=== PATIENT | female | born 1930 | race Caucasian/White ===

== ENCOUNTER 2018-06-21 11:42 | Emergency (ER) | payer MEDICARE, BC ==
[2018-06-21] MEDS ORDERED: Sodium Chloride 0.9% 10 ML Syringe FLUSH PRN (11:48)
[2018-06-21] MEDS ORDERED: cefOXitin 2 GM in Sodium Chloride 0.9% 50 ML IV ONE (12:01)
[2018-06-21] MEDS ORDERED: fentaNYL 100 MCG/2 ML SDV IVPUSH ONE ×2 (12:08)
[2018-06-21] MEDS ORDERED: fentaNYL 100 MCG/2 ML SDV ONE (12:09)
--- NOTE | 2018-06-21 12:09 | EDM.PDOC ---
ED HPI GENERAL MEDICAL PROBLEM - General Chief Complaint: Neuro Symptoms/Deficits Stated Complaint: MEDICAL VIA NORTH Time Seen by Provider: 06/21/18 12:31 Source of Information: Reports: Patient, EMS, Family, RN Notes Reviewed History Limitations: Reports: Altered Mental Status - History of Present Illness INITIAL COMMENTS - FREE TEXT/NARRATIVE: Ambika presents per EMS with change in mental status since last night, difficulty with clear speech and answering questions, SOB, urinary incontinence and generalized body aches. GCS 14 Last known normal was last night prior to bed, talking on the telephone. Patient lives with her brother who helps to care for her. June 16, 2018 patient fell after her knees gave out. Family states she did not hit her head or have any other injuries. Patient did not go in for any medical care. She started to have increased chronic knee pain. June patient started taking PRN prednisone for chronic pain. She has a bath aide come once a week - last this past Oc2017 but patient sleeping more then usual. Ambika has a history of chronic atrial fibrillation for which she does not want to take anticoagulants. Patient has DNR, DNI paperwork to chart, stating she would like IV fluids/ antibiotics if needed. Normal baseline is alert, oriented with slow mobility due to chronic pain/ arthritis. - Related Data Allergies Allergy/AdvReac Type Severity Reaction Status Date / Time codeine Allergy Vomiting Verified 06/21/18 12:32 Home Meds: Home Meds Terazosin [Hytrin] 5 mg PO DAILY 05/05/14 [History] traMADol [Ultram] 50 mg PO DAILY 05/05/14 [History] Aspirin 81 mg PO DAILY 04/09/16 [History] Cefdinir [Omnicef] 300 mg PO BID #8 cap 04/13/16 [Rx] Prednisone [IMW: predniSONE] 40 mg PO DAILY #6 tab 04/13/16 [Rx] Past Medical History HEENT History: Reports: Impaired Vision EMPLOYMENT OFFICER History: Reports: Musculoskeletal History: Reports: Fibromyalgia - Infectious Disease History Infectious Disease History: Reports: Chicken Pox, Measles, Mumps - Past Surgical History GI Surgical History: Reports: Cholecystectomy, Small Bowel ED ROS GENERAL - Review of Systems Review Of Systems: See Below Constitutional: Reports: Weakness, Fatigue, Other (Muscle aches/body aches) HEENT: Reports: Eye Discharge, Hearing Loss. Denies: Ear Pain, Eye Pain, Throat Pain Respiratory: Reports: Shortness of Breath, Wheezing. Denies: Cough, Sputum, Hemoptysis Cardiovascular: Reports: Dyspnea on Exertion, Edema. Denies: Chest Pain, Palpitations Endocrine: Reports: Fatigue GI/Abdominal: Reports: Stool Incontinence : Reports: Incontinence Musculoskeletal: Reports: Joint Pain, Muscle Pain Skin: Reports: Wound, Other (Pressure ulcer to bilateral buttocks, patient family using neosporin to ulcers. ) Neurological: Reports: Confusion, Trouble Speaking, Weakness, Change in Speech. 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 She had sudden onset of change in mental status today compared to last night. She had a fall 5 days ago without reported injury per her daughters. She has increased bladder/bowel incontinence, pressure ulcers to bilateral buttocks, chronic pain due to polymyalgia, arthritis, bursitis. Exam Limited By: Altered Mental Status General Appearance: Anxious, Moderate Distress, Obese, Other (incontinent of urine, feces, pressure wounds to buttocks. ) Eye Exam: Bilateral Eye: Normal Inspection Ears: Normal External Exam, Normal Canal, Normal TMs, Hearing Loss Nose: Normal Mucosa, Nasal Deformity Throat/Mouth: Normal Gums, Normal Oropharynx, No Airway Compromise, Other (dry mucus membranes, no exudate, ulcers noted. ) Head Exam: Atraumatic, Normocephalic. No: Facial Swelling, Facial Tenderness, Sinus Tenderness Neck: Normal Inspection, Supple, Non-Tender, Full Range of Motion. No: Lymphadenopathy (R), Lymphadenopathy (L) Respiratory/Chest: Chest Non-Tender, Decreased Breath Sounds, Rales, Wheezing, Accessory Muscle Use Cardiovascular: Normal Peripheral Pulses, Other (Irregular heart rate, chronic history of atial fibrillation without use of anticoagulation. Patient denies chest pain. Noted murmur. 2+ bilateral lower extremities. ) GI/Abdominal: Normal Bowel Sounds, Soft, No Distention, Other. No: Guarding, Rigid, Rebound Rectal (Female) Exam: Other (incontinent) Neurological: Difficulty Walking, Other (Generalized weakness, equal strength to all four extremities. Speech not slurred, however patient has a difficult time finding words to express herself. ). No: Alert, Normal Gait, Oriented x 3 Back Exam: No: CVA Tenderness (R), CVA Tenderness (L) Extremities: Increased Warmth, Other (Significant pain to bilateral knees, warmth. ) Psychiatric: Anxious, Tearful Skin Exam: Increased Warmth, Pallor, Other (pressure ulcer to right buttock 3x5cm, eschar/necrotic tissue overlay noted with underlying fluctuance. Surrounding tissues has decrased blanching. Pressure ulcer starting to left buttock, 1x2cm, no fluctuance to underlying tissue, decreased blanching of surrounding tissue. ) EKG INTERPRETATION EKG Date: 06/21/18 Time: 12:56 Rhythm: A-Fib Rate (Beats/Min): 78 P-Wave: Absent QRS: Normal ST-T: Normal Course - Vital Signs Last Recorded V/S: Last Vital Signs Temp 36.9 C 06/21/18 11:42 Pulse 92 06/21/18 11:42 Resp 16 06/21/18 11:42 BP 141/94 H 06/21/18 11:42 Pulse Ox 92 L 06/21/18 11:42 - Orders/Labs/Meds Orders: Active Orders 24 hr Category Date Time Status EKG Documentation Completion [RC] ASDIRECTED Care 06/21/18 11:48 Active Ledesma Catheter Insertion [Insert Urinary Catheter] [OM. Care 06/21/18 12:00 Ordered PC] Q24H Urinary Catheter Assessment [RC] ASDIRECTED Care 06/21/18 11:47 Active Vital Signs [RC] Q1H Care 06/21/18 11:45 Active Chest wo Cont [CT] Stat Exams 06/21/18 11:48 Taken Head wo Cont [CT] Stat Exams 06/21/18 11:48 Taken CULTURE BLOOD [BC] Urgent Lab 06/21/18 12:15 Received CULTURE BLOOD [BC] Urgent Lab 06/21/18 12:20 Received CULTURE URINE [RM] Stat Lab 06/21/18 12:54 Received Sodium Chloride 0.9% [Normal Saline] 1,000 ml Med 06/21/18 12:15 Active IV ASDIRECTED Sodium Chloride 0.9% [Saline Flush] Med 06/21/18 11:48 Active 10 ml FLUSH ASDIRECTED PRN Blood Culture x2 Reflex Set [OM.PC] Urgent Oth 06/21/18 11:45 Ordered Saline Lock Insert [OM.PC] Routine Oth 06/21/18 11:48 Ordered EKG 12 Lead [EK] Routine Ther 06/21/18 11:48 Ordered Medication Orders Sodium Chloride (Normal Saline) 1,000 mls @ 1,000 mls/hr IV ASDIRECTED CARLO Last Admin: 06/21/18 12:26 Dose: 1,000 mls/hr Sodium Chloride (Saline Flush) 10 ml FLUSH ASDIRECTED PRN PRN Reason: Keep Vein Open Last Admin: 06/21/18 12:26 Dose: 10 ml Patient is a DNR/DNI per signed paperwork brought in by family. Labs: Laboratory Tests 06/21/18 06/21/18 06/21/18 Range/Units 11:48 12:20 12:20 WBC 6.3 (4.5-11.0) K/uL RBC 4.51 (3.30-5.50) M/uL Hgb 12.9 (12.0-15.0) g/dL Hct 40.1 (36.0-48.0) % MCV 89 (80-98) fL MCH 29 (27-31) pg MCHC 32 (32-36) % Plt Count 213 (150-400) K/uL Neut % (Auto) 85 H (36-66) % Lymph % (Auto) 10 L (24-44) % [place] % (Auto) 5 (2-6) % Eos % (Auto) 1 L (2-4) % Baso % (Auto) 0 (0-1) % PT (9.5-12.0) sec INR (0.80-1.20) APTT (27.0-36.0) sec Puncture Site ABG pH (7.350-7.450) ABG pCO2 (35.0-42.0) mmHg ABG pO2 (75.0-100.0) mmHg ABG HCO3 (22.0-26.0) mmol/L ABG Total CO2 (21.0-25.0) mmol/L ABG O2 Saturation (95.0-98.0) % ABG O2 Content (15.0-23.0) %vol ABG Base Excess mm/L ABG Hemoglobin (12.0-16.0) g/dL ABG Oxyhemoglobin % ABG Carboxyhemoglobin (0.0-1.6) % ABG Methemoglobin % Marty Test O2 Delivery Device Sodium 143 (140-148) mmol/L Potassium 4.6 (3.6-5.2) mmol/L Chloride 108 (100-108) mmol/L Carbon Dioxide 27 (21-32) mmol/L Anion Gap 7.9 (5.0-14.0) mmol/L BUN 39 H (7-18) mg/dL Creatinine 0.9 (0.6-1.0) mg/dL Est Cr Clr Drug Dosing TNP Estimated GFR (MDRD) 59 L (>60) Glucose 102 (74-106) mg/dL Lactic Acid (0.4-2.0) mmol/L Calcium 8.5 (8.5-10.1) mg/dL Magnesium 1.9 (1.8-2.4) mg/dL Total Bilirubin 0.6 (0.2-1.0) mg/dL AST 24 (15-37) U/L ALT 26 (12-78) U/L Alkaline Phosphatase 78 (46-116) U/L Troponin I (0.000-0.056) ng/mL C-Reactive Protein 6.13 H (0.0-0.3) mg/dL NT-Pro-B Natriuret Pep (5-450) pg/mL Total Protein 7.2 (6.4-8.2) g/dL Albumin 2.4 L (3.4-5.0) g/dL Globulin 4.8 H (2.3-3.5) g/dL Albumin/Globulin Ratio 0.5 L (1.2-2.2) TSH, Ultra Sensitive 0.800 (0.358-3.740) uIU/mL Urine Color Urine Appearance Urine pH (4.5-8.0) Ur Specific [employer] (1.008-1.030) Urine Protein (NEGATIVE) mg/dL Urine Glucose (UA) (NEGATIVE) mg/dL Urine Ketones (NEGATIVE) mg/dL Urine Occult Blood (NEGATIVE) Urine Nitrite (NEGATIVE) Urine Bilirubin (NEGATIVE) Urine Urobilinogen (NORMAL) mg/dL Ur Leukocyte Esterase (NEGATIVE) 06/21/18 06/21/18 06/21/18 Range/Units 12:20 12:20 12:20 WBC (4.5-11.0) K/uL RBC (3.30-5.50) M/uL Hgb (12.0-15.0) g/dL Hct (36.0-48.0) % MCV (80-98) fL MCH (27-31) pg MCHC (32-36) % Plt Count (150-400) K/uL Neut % (Auto) (36-66) % Lymph % (Auto) (24-44) % [place] % (Auto) (2-6) % Eos % (Auto) (2-4) % Baso % (Auto) (0-1) % PT (9.5-12.0) sec INR (0.80-1.20) APTT (27.0-36.0) sec Puncture Site Lt radial ABG pH 7.506 H (7.350-7.450) ABG pCO2 35.4 (35.0-42.0) mmHg ABG pO2 130.0 H (75.0-100.0) mmHg ABG HCO3 27.8 H (22.0-26.0) mmol/L ABG Total CO2 24.3 (21.0-25.0) mmol/L ABG O2 Saturation 99.1 H (95.0-98.0) % ABG O2 Content 17.8 (15.0-23.0) %vol ABG Base Excess 5.0 mm/L ABG Hemoglobin 12.9 (12.0-16.0) g/dL ABG Oxyhemoglobin 96.7 % ABG Carboxyhemoglobin 1.9 H (0.0-1.6) % ABG Methemoglobin 0.5 % Marty Test Pass O2 Delivery Device Room air Sodium (140-148) mmol/L Potassium (3.6-5.2) mmol/L Chloride (100-108) mmol/L Carbon Dioxide (21-32) mmol/L Anion Gap (5.0-14.0) mmol/L BUN (7-18) mg/dL Creatinine (0.6-1.0) mg/dL Est Cr Clr Drug Dosing Estimated GFR (MDRD) (>60) Glucose (74-106) mg/dL Lactic Acid 0.8 (0.4-2.0) mmol/L Calcium (8.5-10.1) mg/dL Magnesium (1.8-2.4) mg/dL Total Bilirubin (0.2-1.0) mg/dL AST (15-37) U/L ALT (12-78) U/L Alkaline Phosphatase (46-116) U/L Troponin I 0.093 H* (0.000-0.056) ng/mL C-Reactive Protein (0.0-0.3) mg/dL NT-Pro-B Natriuret Pep 3955 H (5-450) pg/mL Total Protein (6.4-8.2) g/dL Albumin (3.4-5.0) g/dL Globulin (2.3-3.5) g/dL Albumin/Globulin Ratio (1.2-2.2) TSH, Ultra Sensitive (0.358-3.740) uIU/mL Urine Color Urine Appearance Urine pH (4.5-8.0) Ur Specific [employer] (1.008-1.030) Urine Protein (NEGATIVE) mg/dL Urine Glucose (UA) (NEGATIVE) mg/dL Urine Ketones (NEGATIVE) mg/dL Urine Occult Blood (NEGATIVE) Urine Nitrite (NEGATIVE) Urine Bilirubin (NEGATIVE) Urine Urobilinogen (NORMAL) mg/dL Ur Leukocyte Esterase (NEGATIVE) 06/21/18 06/21/18 Range/Units 13:24 13:50 WBC (4.5-11.0) K/uL RBC (3.30-5.50) M/uL Hgb (12.0-15.0) g/dL Hct (36.0-48.0) % MCV (80-98) fL MCH (27-31) pg MCHC (32-36) % Plt Count (150-400) K/uL Neut % (Auto) (36-66) % Lymph % (Auto) (24-44) % [place] % (Auto) (2-6) % Eos % (Auto) (2-4) % Baso % (Auto) (0-1) % PT 11.5 (9.5-12.0) sec INR 1.05 (0.80-1.20) APTT 26.7 L (27.0-36.0) sec Puncture Site ABG pH (7.350-7.450) ABG pCO2 (35.0-42.0) mmHg ABG pO2 (75.0-100.0) mmHg ABG HCO3 (22.0-26.0) mmol/L ABG Total CO2 (21.0-25.0) mmol/L ABG O2 Saturation (95.0-98.0) % ABG O2 Content (15.0-23.0) %vol ABG Base Excess mm/L ABG Hemoglobin (12.0-16.0) g/dL ABG Oxyhemoglobin % ABG Carboxyhemoglobin (0.0-1.6) % ABG Methemoglobin % Marty Test O2 Delivery Device Sodium (140-148) mmol/L Potassium (3.6-5.2) mmol/L Chloride (100-108) mmol/L Carbon Dioxide (21-32) mmol/L Anion Gap (5.0-14.0) mmol/L BUN (7-18) mg/dL Creatinine (0.6-1.0) mg/dL Est Cr Clr Drug Dosing Estimated GFR (MDRD) (>60) Glucose (74-106) mg/dL Lactic Acid (0.4-2.0) mmol/L Calcium (8.5-10.1) mg/dL Magnesium (1.8-2.4) mg/dL Total Bilirubin (0.2-1.0) mg/dL AST (15-37) U/L ALT (12-78) U/L Alkaline Phosphatase (46-116) U/L Troponin I (0.000-0.056) ng/mL C-Reactive Protein (0.0-0.3) mg/dL NT-Pro-B Natriuret Pep (5-450) pg/mL Total Protein (6.4-8.2) g/dL Albumin (3.4-5.0) g/dL Globulin (2.3-3.5) g/dL Albumin/Globulin Ratio (1.2-2.2) TSH, Ultra Sensitive (0.358-3.740) uIU/mL Urine Color Yellow Urine Appearance Slightly cloudy Urine pH 6.0 (4.5-8.0) Ur Specific [employer] 1.015 (1.008-1.030) Urine Protein Trace (NEGATIVE) mg/dL Urine Glucose (UA) Negative (NEGATIVE) mg/dL Urine Ketones Negative (NEGATIVE) mg/dL Urine Occult Blood Large (NEGATIVE) Urine Nitrite Negative (NEGATIVE) Urine Bilirubin Negative (NEGATIVE) Urine Urobilinogen Normal (NORMAL) mg/dL Ur Leukocyte Esterase Small (NEGATIVE) Upon initial presentation, differentials included CVA/urosepsis due to incontinence/no use of anticoagulation per patient choice for A-fib. CT head negative, CT chest shows bilateral pleural effusions, elevated trop, BNP with change in mental status. Patient lab work reviewed with Dr. Moise, he is in agreement with plan. [facility] contacted, discussed case with Dr. Aviles, hospitalist. She will be admitted for CHF, change in mental status. Ledesma catheter placed, furosemide 40mg IV administered prior to transfer. Meds: Medications Generic Name Dose Route Start Last Admin Trade Name Freq PRN Reason Stop Dose Admin Sodium Chloride 1,000 mls @ 1,000 mls/hr 06/21/18 12:15 06/21/18 12:26 Normal Saline IV 1,000 mls/hr ASDIRECTED CARLO Administration Sodium Chloride 10 ml 06/21/18 11:48 06/21/18 12:26 Saline Flush FLUSH 10 ml ASDIRECTED PRN Administration Keep Vein Open Discontinued Medications Generic Name Dose Route Start Last Admin Trade Name Freq PRN Reason Stop Dose Admin Artificial Tears 0 ml 06/21/18 14:45 Natural Balance Tears EYELF 06/21/18 14:46 ASDIRECTED ONE Fentanyl 50 mcg 06/21/18 12:08 06/21/18 12:24 Sublimaze IVPUSH 06/21/18 12:09 50 mcg ONETIME ONE Administration Fentanyl 50 mcg 06/21/18 12:08 Sublimaze IVPUSH 06/21/18 12:09 ONETIME ONE Fentanyl Confirm 06/21/18 12:09 Sublimaze Administered 06/21/18 12:10 Dose 100 mcg .ROUTE .STK-MED ONE Furosemide 40 mg 06/21/18 14:07 Lasix IVPUSH 06/21/18 14:08 ONETIME ONE Cefoxitin Sodium 2 gm/ Sodium 50 mls @ 100 mls/hr 06/21/18 12:01 06/21/18 12: 26 Chloride IV 06/21/18 12:30 100 mls/hr ONETIME ONE Administration - Radiology Interpretation Free Text/Narrative:: Head CT completed, no acute findings. CT of chest completed: Moderate to large bilateral pleural effusions with associated atelectasis of large portions of both lower lobes. heterogeneous enlarged thyroid gland with left thyroid nodule. This is most consistent with multinodular goiter. [facility] full without bed availability. Patient in need of cardiology/neurology services. [facility] contacted for transfer of patient. - Re-Assessments/Exams Free Text/Narrative Re-Assessment/Exam: 06/21/18 14:[address] Aviles, hospitalist [facility]. He is accepting the patient for further care. 06/21/18 14:30 Discussed findings with Ambika and her family, they are in agreement with plan and transfer. Departure - Departure Time of Disposition: 14:20 Disposition: DC/Tfer to [facility] 02 Condition: Poor Clinical Impression: CHF (congestive heart failure), Change in mental status, Bilateral pleural effusion, Urinary incontinence, Pressure ulcer of left buttock, unstageable, Pressure ulcer of right buttock, unspecified stage - Discharge Information *PRESCRIPTION DRUG MONITORING PROGRAM REVIEWED*: No *COPY OF PRESCRIPTION DRUG MONITORING REPORT IN PATIENT NARA: No Referrals: PCP,None [Primary Care Provider] - Forms: ED Department Discharge - My Orders Last 24 Hours: My Active Orders 06/21/18 11:45 Vital Signs [RC] Q1H Blood Culture x2 Reflex Set [OM.PC] Urgent 06/21/18 11:47 Urinary Catheter Assessment [RC] ASDIRECTED 06/21/18 11:48 EKG Documentation Completion [RC] ASDIRECTED Chest wo Cont [CT] Stat Head wo Cont [CT] Stat Sodium Chloride 0.9% [Saline Flush] 10 ml FLUSH ASDIRECTED PRN Saline Lock Insert [OM.PC] Routine EKG 12 Lead [EK] Routine 06/21/18 12:00 Ledesma Catheter Insertion [Insert Urinary Catheter] [OM.PC] Q24H 06/21/18 12:15 CULTURE BLOOD [BC] Urgent Sodium Chloride 0.9% [Normal Saline] 1,000 ml IV ASDIRECTED 06/21/18 12:20 CULTURE BLOOD [BC] Urgent 06/21/18 12:54 CULTURE URINE [RM] Stat - Assessment/Plan Last 24 Hours: My Active Orders 06/21/18 11:45 Vital Signs [RC] Q1H Blood Culture x2 Reflex Set [OM.PC] Urgent 06/21/18 11:47 Urinary Catheter Assessment [RC] ASDIRECTED 06/21/18 11:48 EKG Documentation Completion [RC] ASDIRECTED Chest wo Cont [CT] Stat Head wo Cont [CT] Stat Sodium Chloride 0.9% [Saline Flush] 10 ml FLUSH ASDIRECTED PRN Saline Lock Insert [OM.PC] Routine EKG 12 Lead [EK] Routine 06/21/18 12:00 Ledesma Catheter Insertion [Insert Urinary Catheter] [OM.PC] Q24H 06/21/18 12:15 CULTURE BLOOD [BC] Urgent Sodium Chloride 0.9% [Normal Saline] 1,000 ml IV ASDIRECTED 06/21/18 12:20 CULTURE BLOOD [BC] Urgent 06/21/18 12:54 CULTURE URINE [RM] Stat Assessment:: CHF (congestive heart failure), Change in mental status, Bilateral pleural effusion, Urinary incontinence, Pressure ulcer of left buttock, unstageable, Pressure ulcer of right buttock, unspecified stage Plan: Patient accepted at [facility] by Dr. Aviles. Transport per EMS.
[2018-06-21] MEDS ORDERED: Sodium Chloride 0.9% 1,000 ML IV SCH (12:15)
[2018-06-21] MEDS ORDERED: Furosemide 40 MG/4 ML VIAL IVPUSH ONE (14:07)
[2018-06-21] MEDS ORDERED: Hypromellose 0.4% Ophth Soln 15 ML Bottle EYELF ONE ×2 (14:16→14:45)
[2018-06-21 15:33] VITALS: BP 140/83
== END 2018-06-21 16:01 ==
LOC: JP.ED 11:42
DX: I50.9 Heart failure, unspecified (principal); J90 Pleural effusion, not elsewhere classified; R32 Unspecified urinary incontinence; L89.320 Pressure ulcer of left buttock, unstageable; L89.310 Pressure ulcer of right buttock, unstageable; R41.82 Altered mental status, unspecified; Z79.899 Other long term (current) drug therapy; Z88.5 Allergy status to narcotic agent
CPT/HCPCS: 36415; 36600; 51702; 70450; 71250; 80053; 81003; 82803; 83605; 83735; 83880; 84443; 84484; 85025; 85610; 85730; 86140; 87040; 87086; 93005; 96361; 96365; 96375; 96376; 99285; A9270; J0694; J1940; J3010; J7030; J7050

== ENCOUNTER 2018-12-02 13:23 | Emergency (ER) | payer MEDICARE, BC ==
--- NOTE | 2018-12-02 13:59 | EDM.PDOC ---
ED HPI GENERAL MEDICAL PROBLEM - General Chief Complaint: Respiratory Problem Stated Complaint: MEDICAL VIA NORTH Time Seen by Provider: 12/02/18 13:45 Source of Information: Reports: Patient - History of Present Illness INITIAL COMMENTS - FREE TEXT/NARRATIVE: Ambika Lange is an 88 year old female who was brought in via EMS services due to chest heaviness, dizziness and nausea that started about 4 hours ago. She states she was seen by a provider at [facility] 5 days ago and was diagnosed with a CHF exacerbation with fluid overload. She states that since her visit her shortness of breath has worsened. She is also coughing up thick sputum. She also notes sweating this AM. She states her father had several RI's and her brothers have as well. She indicates no other known cardiac conditions and denies any history of chest pain. - Related Data Allergies Allergy/AdvReac Type Severity Reaction Status Date / Time codeine Allergy Vomiting Verified 06/21/18 12:32 Home Meds: Home Meds Terazosin [Hytrin] 5 mg PO DAILY 05/05/14 [History] traMADol [Ultram] 50 mg PO DAILY 05/05/14 [History] Aspirin 81 mg PO DAILY 04/09/16 [History] Acetaminophen [Mapap] 650 mg PO TID PRN MDD pain 12/02/18 [History] Albuterol Sulfate 3 ml IN ASDIRECTED PRN 12/02/18 [History] Furosemide [Lasix] 40 mg PO DAILY 12/02/18 [History] Guar Gum [Benefiber] 2 tsp PO BID 12/02/18 [History] Magnesium Chloride [Mag-64] 128 mg PO DAILY 12/02/18 [History] Nystatin [Nyamyc] 1 applic TOP ASDIRECTED 12/02/18 [History] Prednisone [IMW: predniSONE] 5 mg PO DAILY 12/02/18 [History] Past Medical History HEENT History: Reports: Impaired Vision Cardiovascular History: Reports: Afib, Heart Failure, Hypertension 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 Denies: Fever, Chills HEENT: Reports: No Symptoms Respiratory: Reports: Shortness of Breath, Cough, Sputum Cardiovascular: Reports: Edema, Orthopnea GI/Abdominal: Reports: No Symptoms Skin: Reports: Other (Erythematous area on right lower extremity ) Neurological: Reports: Dizziness, Headache. Denies: Confusion Hematologic/Lymphatic: Reports: No Symptoms ED EXAM, GENERAL - Physical Exam Exam: See Below Exam Limited By: No Limitations General Appearance: Alert, Mild Distress Ears: Normal External Exam, Hearing Grossly Normal, Normal TMs Nose: Normal Inspection, Normal Mucosa Throat/Mouth: Normal Inspection, Normal Lips, Normal Oropharynx Head: Atraumatic, Normocephalic Neck: Normal Inspection, Supple, Non-Tender Respiratory/Chest: No Respiratory Distress, Other (expiratory wheezing) Cardiovascular: Other (Atrial Fibrillation) GI/Abdominal: Soft, Non-Tender Neurological: Alert, Oriented, Normal Cognition Psychiatric: Normal Affect, Normal Mood Skin Exam: Warm, Intact, No Rash, Other (Right lower extremity reveals a erythematous, circular area, tender to the touch, which appears to be a superficial thrombophlebitis) Course - Vital Signs Last Recorded V/S: Last Vital Signs Temp 95.9 F 12/02/18 13:33 Pulse 72 12/02/18 13:33 Resp 19 12/02/18 13:33 BP 108/51 L 12/02/18 14:59 Pulse Ox 99 12/02/18 13:33 - Orders/Labs/Meds Orders: Active Orders 24 hr Category Date Time Status EKG Documentation Completion [RC] ASDIRECTED Care 12/02/18 13:53 Active CULTURE URINE [RM] Stat Lab 12/02/18 14:59 Received EKG 12 Lead [EK] Routine Ther 12/02/18 13:52 Ordered Labs: Laboratory Tests 12/02/18 12/02/18 12/02/18 Range/Units 14:00 14:00 14:29 WBC 6.6 (4.5-11.0) K/uL RBC 4.32 (3.30-5.50) M/uL Hgb 12.8 (12.0-15.0) g/dL Hct 40.7 (36.0-48.0) % MCV 94 (80-98) fL MCH 30 (27-31) pg MCHC 31 L (32-36) % Plt Count 243 (150-400) K/uL Neut % (Auto) 77 H (36-66) % Lymph % (Auto) 17 L (24-44) % [place] % (Auto) 5 (2-6) % Eos % (Auto) 1 L (2-4) % Baso % (Auto) 0 (0-1) % Sodium 143 (140-148) mmol/L Potassium 3.8 (3.6-5.2) mmol/L Chloride 104 (100-108) mmol/L Carbon Dioxide 31 (21-32) mmol/L Anion Gap 8.4 (5.0-14.0) mmol/L BUN 36 H (7-18) mg/dL Creatinine 1.0 (0.6-1.0) mg/dL Est Cr Clr Drug Dosing 27.93 mL/min Estimated GFR (MDRD) 52 L (>60) Glucose 103 (74-106) mg/dL Calcium 8.9 (8.5-10.1) mg/dL Troponin I 0.126 H* (0.000-0.056) ng/mL Urine Color Yellow Urine Appearance Clear Urine pH 5.0 (4.5-8.0) Ur Specific [place] 1.010 (1.008-1.030) Urine Protein Negative (NEGATIVE) mg/dL Urine Glucose (UA) Normal (NEGATIVE) mg/dL Urine Ketones Negative (NEGATIVE) mg/dL Urine Occult Blood Negative (NEGATIVE) Urine Nitrite Positive H (NEGATIVE) Urine Bilirubin Negative (NEGATIVE) Urine Urobilinogen Normal (NORMAL) mg/dL Ur Leukocyte Esterase Large (NEGATIVE) Urine RBC 0-5 (0-5) Urine WBC 30-40 H (0-5) Ur Epithelial Cells Not seen Amorphous Sediment Not seen Urine Bacteria Many Urine Mucus Not seen Departure - Departure Time of Disposition: 15:12 Disposition: Home, Self-Care 01 Condition: Fair Clinical Impression: CHF exacerbation, Atypical chest pain, Diaphoresis, Urinary tract infection - Discharge Information *PRESCRIPTION DRUG MONITORING PROGRAM REVIEWED*: No *COPY OF PRESCRIPTION DRUG MONITORING REPORT IN PATIENT NARA: No Instructions: Urinary Tract Infection, Adult, [id number], Heart Failure Exacerbation Referrals: PCP,None [Primary Care Provider] - Forms: ED Department Discharge Additional Instructions: Prescribed Macrobid, 100 MG tablet, twice a day for 5 days. Continue to monitor symptoms Continue current Lasix dose Follow up as needed for worsening of symptoms or if symptoms fail to improve May use a probiotic if needed.
[2018-12-02 15:00] VITALS: BP 108/51
--- NOTE | 2018-12-02 15:06 | CRLCR ---
Indication: Chest tightness. SOB Technique: Chest 2 views Comparison: None Findings/Impression: Cardiovascular and mediastinum: Unremarkable cardiac size. A mildly unfolded aorta. Lungs and pleural spaces: A right pleural effusion. An ill-defined right lower lung opacity could represent atelectasis or consolidation. Correlate clinically and followup. Bones and soft tissues: Curvilinear density projecting over the posterior lower chest on the lateral view, possibly overlying the patient. Dictated by Zeb Mathew MD @ 12/02/2018 3:04:40 PM Dictated by: Zeb Mathew MD @ 12/02/2018 15:05:00 (Electronically Signed)
== END 2018-12-02 15:39 | disposition home or self-care (01) ==
LOC: JP.ED 13:23
DX: I11.0 Hypertensive heart disease with heart failure (principal); I50.9 Heart failure, unspecified; R61 Generalized hyperhidrosis; N39.0 Urinary tract infection, site not specified; I48.91 Unspecified atrial fibrillation; J44.9 Chronic obstructive pulmonary disease, unspecified; Z79.899 Other long term (current) drug therapy; Z79.82 Long term (current) use of aspirin; Z88.5 Allergy status to narcotic agent
CPT/HCPCS: 36415; 71046; 80048; 81001; 84484; 85025; 87086; 87088; 87186; 93005; 99284-25; 99285

== ENCOUNTER → 2019-09-24 | Day surgery (SDC) | payer MEDICARE, BC ==
[~2019-09-24] MED LIST: Sodium Chloride 0.9% 10 ML Syringe FLUSH PRN
[2019-09-24 07:06] VITALS: BP 144/70; PULSE 91
--- NOTE | 2019-09-24 11:10 | OR ---
DATE OF PROCEDURE: 09/24/2019 SURGEON: Alize Loera MD POSTOPERATIVE CARE: Postoperative care will be provided mainly at the [address] [place] [address] [facility] in conjunction with [facility]. PREOPERATIVE DIAGNOSIS: Cataract, right eye. POSTOPERATIVE DIAGNOSIS: Cataract, right eye. PROCEDURE: Phacoemulsification with intraocular lens placement, right eye. ANESTHESIA: Topical and intracameral. ESTIMATED BLOOD LOSS: Minimal. COMPLICATIONS: None. PATHOLOGY SPECIMENS: None. SURGICAL FINDINGS: None. INDICATION FOR PROCEDURE: The patient is an 89-year-old female with history of a visually significant cataract in the right eye, which interfered with activities of daily living. This consisted of a nuclear sclerosis cataract. Following careful discussion of the risks, benefits and alternatives to cataract extraction with intraocular lens placement including blindness and , the patient elected to proceed, and informed, written consent was obtained prior to the procedure. DESCRIPTION OF THE PROCEDURE: The patient was previously identified, and a harshal placed above the right eye. All sources, including the patient, indicated that the right eye was the correct eye. The patient was subsequently taken to the operating room where standard monitors were applied. The patient was then prepped and draped in the usual sterile fashion for ophthalmic surgery. Attention was first directed at the 12 o'clock position where a paracentesis port was fashioned. Shugar solution followed by Viscoat was instilled into the eye. Attention was then directed to the 8:30 position where a triplanar incision was made in a near-clear manner using a keratome. A continuous capsulorrhexis was then made using a combination of the cystotome and Utrata forceps. Hydrodissection was achieved using a balanced salt solution, and the lens rotated nicely. Phacoemulsification was then done using a modified [id number] technique without complication. Phaco time was 18.58 CDE. The remaining cortex was removed using the irrigation/aspiration handpiece. Provisc was then instilled into the eye. A Technis lens, model [id number], at 19.0 diopters was then placed in the capsular bag using an [place] injector. The remaining viscoelastic was removed using the irrigation/aspiration forceps. All wounds were then checked and found to be watertight. The lid speculum and drapes were removed. Maxitrol ointment was placed in the patient's right eye, and the eye was shielded. The patient tolerated the procedure well. The patient was instructed to follow up tomorrow. All needle and sponge counts were correct at the end of the procedure. Alize Loera MD /[id number]
== END ==
LOC: JP.SDS 06:21
PROVIDERS: ATTEND Ophthalmology
DX: H25.11 Age-related nuclear cataract, right eye (principal); I11.0 Hypertensive heart disease with heart failure; I50.9 Heart failure, unspecified; E66.9 Obesity, unspecified
CPT/HCPCS: 66984; V2632

== ENCOUNTER 2019-10-08 07:14 | Day surgery (SDC) | payer MEDICARE, BC ==
[2019-10-08] MEDS ORDERED: Sodium Chloride 0.9% 10 ML Syringe FLUSH PRN (08:00)
[2019-10-08 09:44] VITALS: BP 121/67; PULSE 90
--- NOTE | 2019-10-08 14:48 | OR ---
DATE OF PROCEDURE: 10/08/2019 SURGEON: Alize Loera MD POSTOPERATIVE CARE: Postoperative care will be provided mainly at the [address] [place] [address] [facility] in conjunction with [facility]. PREOPERATIVE DIAGNOSIS: Cataract, left eye. POSTOPERATIVE DIAGNOSIS: Cataract, left eye. PROCEDURE: Phacoemulsification with intraocular lens placement, left eye. ANESTHESIA: Topical and intracameral. ESTIMATED BLOOD LOSS: Minimal. COMPLICATIONS: None. PATHOLOGY SPECIMENS: None. SURGICAL FINDINGS: None. INDICATION FOR PROCEDURE: The patient is an 89-year-old female with history of a visually significant cataract in the left eye, which interfered with activities of daily living. This consisted of a nuclear sclerosis cataract. Following careful discussion of the risks, benefits and alternatives to cataract extraction with intraocular lens placement including blindness and , the patient elected to proceed, and informed, written consent was obtained prior to the procedure. DESCRIPTION OF THE PROCEDURE: The patient was previously identified, and a harshal placed above the left eye. All sources, including the patient, indicated that the left eye was the correct eye. The patient was subsequently taken to the operating room where standard monitors were applied. The patient was then prepped and draped in the usual sterile fashion for ophthalmic surgery. Attention was first directed at the 12 o'clock position where a paracentesis port was fashioned. Shugar solution followed by Viscoat was instilled into the eye. Attention was then directed to the 8:30 position where a triplanar incision was made in a near-clear manner using a keratome. A continuous capsulorrhexis was then made using a combination of the cystotome and Utrata forceps. Hydrodissection was achieved using a balanced salt solution, and the lens rotated nicely. Phacoemulsification was then done using a modified [id number] technique without complication. Phaco time was 12.12 CDE. The remaining cortex was removed using the irrigation/aspiration handpiece. Provisc was then instilled into the eye. A Technis lens, model [id number], at 18.0 diopters was then placed in the capsular bag using an [place] injector. The remaining viscoelastic was removed using the irrigation/aspiration forceps. All wounds were then checked and found to be watertight. The lid speculum and drapes were removed. Maxitrol ointment was placed in the patient's left eye, and the eye was shielded. The patient tolerated the procedure well. The patient was instructed to follow up tomorrow. All needle and sponge counts were correct at the end of the procedure. Alize Loera MD /[id number]
== END 2019-10-08 09:51 | disposition other institution (70) ==
LOC: JP.SDS 07:14
PROVIDERS: ATTEND Ophthalmology
DX: H25.12 Age-related nuclear cataract, left eye (principal); I11.0 Hypertensive heart disease with heart failure; I50.9 Heart failure, unspecified; M19.90 Unspecified osteoarthritis, unspecified site; E66.9 Obesity, unspecified; Z88.5 Allergy status to narcotic agent; Z68.41 Body mass index [BMI] 40.0-44.9, adult
CPT/HCPCS: V2632